=== PATIENT | male | born 1945 | race Two or more races ===

== ENCOUNTER 2016-12-21 18:43 | Emergency (ER) | payer BC, OTHER ==
[~2016-12-21] VITALS: Ht 180.3 cm; Wt 88.5 kg
[2016-12-21 19:20] VITALS: BP 149/77
[2016-12-21 22:00] VITALS: BP 138/85
--- NOTE | 2016-12-21 23:29 | Emergency Room Report ---
History of Present Illness General Chief Complaint: Pain Source: Patient Present Illness HPI The patient is a 71-year-old male presenting for left lower leg pain and swelling for the past 2 days. he denies any injury to the area. He denies recent history of long travel or periods of immobility. Pain is described as a 4/10 dull ache and does not radiate. He notices swelling and pain increases while standing and walking. He denies any other symptoms including nausea, vomiting, fever, chills, shortness of breath, chest pain, calf pain, rash Allergies: Coded Allergies: No Known Allergies (Unverified , 11/22/14) Patient History Past Medical History: see triage record Pertinent Family History: none Reviewed Nursing Documentation: PMH: Agreed, PSxH: Agreed Nursing Documentation-PMH Hx Hypertension: Yes Hx Dialysis: No - Kidney transplant 16 mos ago Review of Systems All Other Systems: negative except mentioned in HPI Physical Exam Vital Signs Date Time Temp Pulse Resp B/P (MAP) Pulse Ox O2 Delivery O2 Flow Rate FiO2 12/21/16 19:07 98.4 80 16 149/77 98 Room Air Sp02 EP Interpretation: reviewed, normal General Appearance: no apparent distress, alert, GCS 15, non-toxic Head: normocephalic, atraumatic Eyes: bilateral eye normal inspection, bilateral eye PERRL ENT: hearing grossly normal, normal pharynx, no angioedema, normal voice Neck: full range of motion, supple/symm/no masses Respiratory: chest non-tender, lungs clear, normal breath sounds, speaking full sentences Cardiovascular #1: regular rate, rhythm, no edema Musculoskeletal: normal range of motion, no calf tenderness, swelling - L lower leg 1+ edema Neurologic: alert, oriented x3, responsive, motor strength/tone normal, sensory intact, speech normal Psychiatric: judgement/insight normal, memory normal, mood/affect normal, no suicidal/homicidal ideation Skin: normal color, no rash, warm/dry, well hydrated Lymphatic: no adenopathy Medical Decision Making PA Attestation Dr. Meade is my supervising physician. Patient management was discussed with my supervising physician Diagnostic Impression: Primary Impression: Venous insufficiency ER Course The patient is a 71-year-old male presenting for left lower leg pain and swelling Differential diagnoses considered but not limited to: Venous insufficiency, lymphedema, DVT, sprain, among others Physical exam: No apparent distress Left lower leg reveals 1+ pitting edema from the distal lower leg to the mid foot. There is no noted calf swelling or tenderness Full active range of motion intact Sensation intact DP pulse 2+ DVT study negative. The patient will be discharged home. He was informed to continue to elevate the legs at home and use compression stockings. He will follow up with his primary doctor. ER precautions are given EKG Diagnostic Results EP Interpretation: NSR Rate: normal - 69 Rhythm: NSR ST Segments: no acute changes ASA given to the pt in ED: No PA Scribe Text EKG was reviewed and read with my supervising physician. No acute ST segment changes are seen. Normal rate and rhythm. No acute changes. Chest X-Ray Diagnostic Results Chest X-Ray Diagnostic Results : Chest X-Ray Ordered: Yes # of Views/Limited/Complete: 1 View Indication: Other - edema EP Interpretation: Yes Interpretation: no consolidation, no effusion, no pneumothorax Impression: No acute disease Electronically Signed by: JONA Rodriguez Scrib[employer]i Text My and my supervising physician's interpretation of the chest xrays are there is no consolidation, no effusion, no acute cardiopulmonary disease, no pneumothorax CT/MRI/US Diagnostic Results CT/MRI/US Diagnostic Results : Imaging Test Ordered: Venous duplex Impression No signs of DVT Last Vital Signs Date Time Temp Pulse Resp B/P (MAP) Pulse Ox O2 Delivery O2 Flow Rate FiO2 12/21/16 22:00 71 20 138/85 100 Room Air 12/21/16 19:20 98.4 Status: improved Disposition: HOME, SELF-CARE Condition: Improved Referrals: ANSHUL HWANG (PCP) Patient Instructions: Venous Stasis or Chronic Venous Insufficiency, Peripheral Edema Additional Instructions: I discussed my findings with the patient. All questions and concerns have been answered. Treatment and medication compliance have been addressed. I advised the patient that they need to follow up with [facility] doctor within 3 days. Return to ED if symptoms worsen, new symptoms arise such as fever, shortness of breath, chest pain, leg pain, or if needed for any reason. Patient verbalized understanding of discharge instructions. TALISHA NOE Dec 21, 2016 23:29
--- NOTE | 2016-12-22 12:44 | Diagnostic Imaging Report ---
Indication: Chest pain Comparison: None A single view chest radiograph was obtained. Findings: Cardiomediastinal appearance is within normal limits for age. Aorta is mildly calcified. Pulmonary vascularity is appropriate. The diaphragmatic contour is smooth and costophrenic angles are sharp. No pleural effusions are identified. The bones are osteopenic. Impression: No acute findings
--- NOTE | 2016-12-23 15:48 | Cardiology Report ---
APPROVED REPORT EKG Measurement Heart [id number] PA [id number] Normal sinus rhythm Possible Anterior infarct, age undetermined Abnormal ECG
--- NOTE | 2016-12-23 23:31 | Diagnostic Imaging Report ---
APPROVED REPORT CPT Code: 61059 Present Symptoms Lower Extremity Pain: Bilateral Lower Extremity Edema: Left BILATERAL: Imaging reveals a patent deep venous system bilaterally. There is no evidence of thrombus within the femoral, popliteal or tibial segments. The greater saphenous veins are also within normal limits. Doppler indicates normal spontaneous flow within these segments.
== END 2016-12-21 22:00 | disposition home or self-care (01) ==
LOC: EMR 19:56
DX: I87.2 Venous insufficiency (chronic) (peripheral) (principal); I10 Essential (primary) hypertension; Z94.0 Kidney transplant status
CPT/HCPCS: 71010; 93005; 93970; 99284